=== PATIENT | male | born 1965 | race Caucasian/White ===

== ENCOUNTER 2020-01-15 09:54 | Emergency (ER) | payer OTHER ==
[~2020-01-15] VITALS: Ht 193 cm; Wt 99.8 kg
[~2020-01-15 09:54] MED LIST: EFFEXOR XR150 MG PO; HYDROXYZINE HCL50 MG PO; OMEPRAZOLE20 M1 PO; SYNTHROID137 MCG PO; ZOCOR10 MG PO
[2020-01-15] MEDS ORDERED: BUSPIRONE HCL10 MG PO (10:14)
[2020-01-15] MEDS ORDERED: LIPITOR10 MG PO (10:15)
[2020-01-15] MEDS ORDERED: VOLTAREN100 GM TOP (10:15)
[2020-01-15] MEDS ORDERED: VENTOLIN HFA18 GM INH (10:16)
[2020-01-15] MEDS ORDERED: LIDODERM1 EACH TOP (12:30)
--- NOTE | 2020-01-15 12:39 | EKG ---
[facility] [address] [place] [address] Signed Normal sinus rhythm Moderate voltage criteria for LVH, may be normal variant Borderline ECG No previous ECGs available Confirmed by MARA DAVIS MD ([id number]) on 01/15/2020 12:39:32 PM Electronically Signed By: MARA DAVIS MD 01/15/20 1239 PATIENT NAME: PANDA LUCIANO Electrocardiogram DATE OF : 65 PHYSICIAN: MARA DAVIS MD REPORT #: [id number] REPORT IS CONFIDENTIAL AND NOT TO BE RELEASED WITHOUT AUTHORIZATION
== END 2020-01-15 12:55 | disposition home or self-care (01) ==
LOC: ED 09:54
DX: M94.0 Chondrocostal junction syndrome [Tietze] (principal); E03.9 Hypothyroidism, unspecified; F32.9 Major depressive disorder, single episode, unspecified; F41.9 Anxiety disorder, unspecified; I10 Essential (primary) hypertension; E78.5 Hyperlipidemia, unspecified; Z79.899 Other long term (current) drug therapy
CPT/HCPCS: 71045; 80053; 84484; 85025; 93005; 93010; 99285-25; A9270